=== PATIENT | male | born 1950 | race Caucasian/White ===

== ENCOUNTER 2023-09-24 00:58 | Day surgery (SDC) | payer MEDICARE, SELFPAY ==
[2023-09-18 14:40] VITALS: BMI 27.1
--- NOTE | 2023-09-18 14:48 | PC.NURSE ---
Report to the Outpatient Waiting Room, entrance under the green pavilion located off [facility], at time _1030_ on date _[phone]_. Planned Procedure Time: _1230_. Time changes happen often and if your time is changed the preop area will call you the afternoon before. - You and your visitor will be asked to self-screen and do not enter if you have any COVID symptoms. - A mask is optional within the hospital at this time. Patients may have clear liquids (water, carbonated beverages, clear teas, apple juice) until 3 hours prior to surgery with a maximum of 20 ounces. - No food from midnight until time of surgery Take the following medications with a SIP of water the morning of surgery: ___None DO NOT STOP ANY OF YOUR OTHER PRESCRIPTION MEDICATIONS PRIOR TO SURGERY ?EXCEPT THE FOLLOWING Medications to discontinue per physician All vitamins Date to take last [id number] Please no make-up, nail pitcairn islander, hairspray, perfume, deodorant, or body powder the day of surgery. No jewelry (including any body piercings) or valuables the day of surgery, leave them at home. Please take a shower or bath the night before, or the morning of, surgery with an antibacterial soap. Wear comfortable, loose fitting clothing. - Jewelry must be removed prior to entering the operating room. Rings and piercings that are not removed may be cut off. - The hospital will not accept responsibility for valuables. - Please leave all valuables, including medications, at home the day of surgery. If you are going home after surgery, a licensed corrugated fastener driver must drive you home. - NO public transportation without another adult if you receive anesthesia. - We recommend that an adult stay with you for 24 hours following discharge. - We also recommend that you do not drive, make important decision, drink alcoholic beverages, or take any drugs that were not prescribed by your health care provider for at least 24 hours after your discharge time. Follow any additional instructions given to you from your surgeon. If you or anyone in your household have experienced Covid symptoms in the past week, please notify your surgeon or the nurse liaison at the phone number below for possible testing. Telephone instructions given to ___Dana and asked if any additional questions and then verbalized understanding. Patient advised to call surgeon office or pre surgery nurse liaison [phone] if any additional questions.
--- NOTE | 2023-09-22 07:20 | P.HP_ITS ---
H&P: HPI History of Present Illness Date/Time: 09/22/23 07:20 Chief Complaint: Difficulty urinating Narrative: Patient with longstanding obstructive and irritable voiding symptoms related to bladder outlet obstruction secondary to BPH. He has failed attempts at management with both off blockers and 5 alpha reductase inhibitors. Outpatient urodynamics confirm outlet obstruction and transrectal ultrasonography of the prostate reveals a volume of 26 g. After discussion of options he is elected for TURP. Aware of the risks including, but not limited to, postoperative hematuria, retrograde ejaculation and persistent voiding symptoms Review of Systems Cardiovascular: Cardiovascular: Denies chest pain, Denies lightheadedness, Denies palpitations and Denies dyspnea Respiratory: Respiratory: Denies dyspnea Gastrointestinal: Gastrointestinal: Denies diarrhea, Denies nausea and Denies vomiting Genitourinary: Genitourinary: Denies hematuria and Denies dysuria Endocrine: Endocrine: Denies palpitations [facility] Social History Social History Smoking packs per day: 1 Smoking cigarettes per day: 20.0 Years smoked: 20 Smoking pack-years: 20.00 Smoking status: Former smoker Smoking end date: 09/17/89 Living arrangements: with family Spiritual care concerns: No Meds Home Medications and Allergies Home Medications Medication Instructions Recorded Confirmed Type metoprolol succinate 50 mg 25 mg PO QPM 09/18/23 09/18/23 History tablet,extended release 24 hr tadalafil 5 mg tablet 2 mg PO HS 09/18/23 09/18/23 History tamsulosin 0.4 mg capsule 0.4 mg PO HS 09/18/23 09/18/23 History Allergies Allergy/AdvReac Type Severity Reaction Status Date / Time No Known Allergies Allergy Verified 09/18/23 14:37 Exam Const: General: no acute distress Resp: Effort & Inspection: normal respiratory effort GI: Inspection: non-distended GI Palp: No abdominal tenderness and No Guarding due to palpation present (GI) Auscultation: normal bowel sounds Assessment and Plan Assessment and plan (1) BPH loc w urin obs/LUTS: Code(s): N40.1 - Benign prostatic hyperplasia with lower urinary tract symptoms Status: Acute Assessment and Plan: * TURP
[2023-09-24] VITALS (17 sets, daily range): BP systolic 124–157; BP diastolic 53–86; PULSE 58–94; RESP 12–18; TEMP 36–38.1; O2SAT 95–100
--- NOTE | 2023-09-24 06:28 | WPDHPUPDATE1 ---
History and Physical Update Update Date/Time: 09/24/23 06:28 History and Physical has been reviewed, including an updated exam of the patient. There are NO changes in the patient's condition. Risks, benefits, and alternatives have been discussed and questions answered. Patient agrees to proceed with procedure.
[2023-09-24] MEDS: LACTATED RINGERS 1,000 ML 30 ML IV CONT (11:11)
--- NOTE | 2023-09-24 11:58 | WPDANESEPPF ---
Anes - Initial Pre Proc Eval Procedure: Operation Date: 09/24/23 12:30 Proposed Procedures p Trans Urethral Resection of Prostate - Collin Houston MD Date/Time: 09/24/23 11:58 Surgeon: Collin Houston MD Pre Op Diagnosis: bph Patient Data Age: 72 Gender: M Height: 1.85 m Weight: 95.8 kg Last Vital Signs Temp 98.3 F 09/24/23 11:18 Pulse 69 09/24/23 11:18 Resp 16 09/24/23 11:18 BP 151/64 H 09/24/23 11:18 Pulse Ox 99 09/24/23 11:18 O2 Del Method Room Air 09/24/23 11:18 Allergies Allergy/AdvReac Type Severity Reaction Status Date / Time No Known Allergies Allergy Verified 09/24/23 10:39 Home Medications Medication Instructions Recorded Confirmed Type metoprolol succinate 50 mg 25 mg PO QPM 09/18/23 09/24/23 History tablet,extended release 24 hr tadalafil 5 mg tablet 2 mg PO HS 09/18/23 09/24/23 History tamsulosin 0.4 mg capsule 0.4 mg PO HS 09/18/23 09/24/23 History Patient hx anesthesia problems: none Family hx anesthesia problems: none Results Review: All pre-operative results and documents have been reviewed as part of the pre-operative evaluation. [facility] Social History Social History Smoking packs per day: 1 Smoking cigarettes per day: 20.0 Years smoked: 20 Smoking pack-years: 20.00 Smoking status: Former smoker Smoking end date: 09/17/89 Living arrangements: with family Spiritual care concerns: No Anes - Eval Final PreProcedure Day of Procedure 09/24/23 11:58 Patient weight: normal Heart: regular rate and rhythm Lungs: clear to auscultation Airway: Mallampati scale class II Neurological: alert and oriented Last oral intake: >/= 8 hours ASA classification: III Emergent: no Anesthetic plan: proceed Anesthesia type and monitoring: general and standard monitoring Results Review: All pre-operative results and documents have been reviewed as part of the pre-operative evaluation. Pt very active w rowing, wts, cardio, no cp or sob. Informed Consent: The patient's anesthetic plan and its attendant risks and benefits were discussed with the patient/family/POA. Questions were solicited and answers provided to the satisfaction of the patient/family/POA.
[2023-09-24] MEDS: ceFAZolin 2 GM/D5W 50 ML 2 GM/50 ML BAG IVPB (12:32)
[2023-09-24] MEDS: LIDOCAINE HCL 2% GEL UROJET 10 ML PKG MUCOUS MEM (13:20)
--- NOTE | 2023-09-24 13:36 | W.PM.PROC2 ---
Procedure Note - Detailed Date of Procedure 09/24/23 Pre-op Diagnosis BPH Post-op Diagnosis Same Procedure Performed TURP Surgeon Collin Houston MD Anesthesia General Description of Procedure The patient was brought to the operative suite where he is prepped and draped in routine sterile fashion while in the dorsal lithotomy position after the uneventful induction of a general LMA anesthetic. A 27 Montserratian resectoscope sheath was placed into his bladder. He had no urethral strictures. The patient had trilobal hyperplasia with a large median lobe. The bladder itself was endoscopically normal, showing no mucosal hyperemia, intravesical neoplasm or foreign bodies. There was a single, orthotopic ureteral orifice bilaterally. These orifices were identified and preserved throughout the remainder of the procedure. Attention was first turned to resection of the median lobe. This resection was undertaken from the bladder neck to the verumontanum and carried out until the transverse fibers of the bladder neck were identified. The left lateral lobe was then resected starting at the 6 o'clock position, working counter clockwise to the 12 o'clock position. Again, resection was carried out from the bladder neck to the verumontanum until the capsular fibers of the prostate were identified. The right lateral lobe was resected in a similar fashion starting at the 6 o'clock position working clockwise to the 12 o'clock position and carried out until the capsular fibers of the prostate were identified. Apical tissue was then circumferentially resected. All chips were evacuated from the bladder using an [employer] evacuator. Hemostasis was obtained with electric cautery. The ureteral orifices were again inspected and found to be without injury. Estimated blood loss throughout this procedure was 75cc. The patient was taken to recovery room having tolerated this well. Drains Yes Packing No Pathology Yes Complications No immediate complications Disposition PACU
[2023-09-24] MEDS: fentaNYL CITRATE INJ (*CRX) 100 MCG/2 ML VIAL 25 MCG IV PUSH ×4 (14:07→15:02)
--- NOTE | 2023-09-24 15:25 | PC.NURSE ---
This patient, Susan Wiggins, was admitted to 3 [facility] Surg Room 309-01. Patient/family oriented to hospital policies and general routines including ID bracelet, bed and alarms, visiting hours, pain management, procedures, bathroom and other care routines, personal items, smoking policy, room service/diet, and visiting hours. Information on how to activate the Rapid Response Team has been discussed. Patient/Family are encouraged to report perceived risks to care and to ask questions if they do not understand what they are told or what they should do.
--- NOTE | 2023-09-24 15:35 | PC.NURSE ---
Patient has knee high teds on.
[2023-09-24] MEDS: DOCUSATE SODIUM 100 MG CAPSULE PO (16:59)
[2023-09-24] MEDS: HYDROcodone/acetaminophen (*CRX) 5-325 MG TABLET 1 TAB PO ×2 (17:55→23:09)
[2023-09-24] MEDS: ONDANSETRON INJ 4 MG/2 ML VIAL IV PUSH (18:23)
[2023-09-24] MEDS: ceFAZolin 1 GM/NS 50 ML 1 GM/50 ML BAG IVPB (18:29)
[2023-09-24] MEDS: METOPROLOL SUCCINATE EXT REL 25 MG TABCR PO (20:40)
[2023-09-25] MEDS: ceFAZolin 1 GM/NS 50 ML 1 GM/50 ML BAG IVPB (04:10)
[2023-09-25] MEDS: HYDROcodone/acetaminophen (*CRX) 5-325 MG TABLET 1 TAB PO (04:56)
[2023-09-25 06:29] LABS: Hematocrit 37.1 % (42.0-52.0); Hemoglobin 12.2 g/dL (14.0-18.0)
[2023-09-25 06:32] VITALS: BP 114/53; PULSE 67; RESP 16; TEMP 36.9; O2SAT 96
[2023-09-25 06:51] LABS: Anion Gap 4 mmol/L (4-12); Blood Urea Nitrogen 21 mg/dL (9-20); Calcium 8.5 mg/dL (8.4-10.2); Carbon Dioxide 24 mmol/L (22-30); Chloride 104 mmol/L (98-107); Estimated CRCL calculation 74 ml/min; Estimated Glomerular Filt Rate > 60; Glucose 97 mg/dL (65-110); Potassium 4.1 mmol/L (3.4-5.0); Sodium 132 mmol/L (137-145)
--- NOTE | 2023-09-25 07:18 | P.PNUR_ITS ---
Progress Note: A&P Assessment and Plan (1) BPH loc w urin obs/LUTS: Code(s): N40.1 - Benign prostatic hyperplasia with lower urinary tract symptoms Status: Acute Assessment and Plan: * Doing well postop day 1 * Stop CBI this morning and plan voiding trial later today if urine remains Subjective Subjective Date/Time Seen: 09/25/23 07:18 Interval history: Comfortable, no complaints, slept well Review of Systems Cardiovascular: Cardiovascular: Denies chest pain, Denies lightheadedness, Denies palpitations and Denies dyspnea Respiratory: Respiratory: Denies dyspnea Gastrointestinal: Gastrointestinal: Denies diarrhea, Denies nausea and Denies vomiting Genitourinary: Genitourinary: Denies hematuria and Denies dysuria Endocrine: Endocrine: Denies palpitations Exam Const: General: no acute distress Resp: Effort & Inspection: normal respiratory effort GI: Inspection: non-distended GI Palp: No abdominal tenderness and No Guarding due to palpation present (GI) Auscultation: normal bowel sounds Urinary Catheter: Urinary Catheter: patent and draining and urine clear Objective Data Vital Signs Vital Signs: Vital Signs - 24 hr 09/24/23 11:18 09/24/23 13:30 09/24/23 13:45 Temperature 98.3 F 97.2 F L Pulse Rate 69 58 L 72 Respiratory Rate 16 12 18 Blood Pressure 151/64 H 124/63 137/70 Pulse Oximetry 99 100 100 Oxygen Delivery Room Air Simple Face Mask Simple Face Mask Oxygen Flow Rate 10 10 09/24/23 13:55 09/24/23 14:00 09/24/23 14:15 Temperature Pulse Rate 69 69 Respiratory Rate 18 14 Blood Pressure 148/82 H 148/77 H Pulse Oximetry 98 100 100 Oxygen Delivery Room Air Room Air Room Air Oxygen Flow Rate 09/24/23 14:30 09/24/23 14:45 09/24/23 15:00 Temperature Pulse Rate 65 62 60 Respiratory Rate 14 14 12 Blood Pressure 135/74 144/69 H 127/72 Pulse Oximetry 98 100 100 Oxygen Delivery Room Air Room Air Room Air Oxygen Flow Rate 09/24/23 15:11 09/24/23 15:25 09/24/23 15:40 Temperature 96.9 F L 96.8 F L Pulse Rate 67 71 76 Respiratory Rate 16 18 18 Blood Pressure 154/75 H 157/83 H 142/86 H Pulse Oximetry 100 100 100 Oxygen Delivery Room Air Oxygen Flow Rate 09/24/23 16:10 09/24/23 15:30 09/24/23 17:10 Temperature 96.8 F L Pulse Rate 71 76 Respiratory Rate 18 Blood Pressure 138/78 150/78 H Pulse Oximetry 100 99 Oxygen Delivery Room Air Oxygen Flow Rate 09/24/23 20:40 09/24/23 20:27 09/24/23 20:30 Temperature 100.5 F H Pulse Rate 91 94 Respiratory Rate 16 Blood Pressure 134/53 L Pulse Oximetry 95 Oxygen Delivery Room Air Oxygen Flow Rate 09/24/23 21:50 09/25/23 06:32 Temperature 99.8 F H 98.5 F Pulse Rate 67 Respiratory Rate 16 Blood Pressure 114/53 L Pulse Oximetry 96 Oxygen Delivery Oxygen Flow Rate Intake/Output Intake/Output: Intake & Output 09/22/23 09/23/23 09/24/23 09/25/23 23:59 23:59 23:59 23:59 Intake Total 1150 50 Output Total 600 Balance 550 50 Meds/Results Medications: Active Medications Generic Name Dose Route Start Last Admin Trade Name Freq PRN Reason Stop Dose Admin Hydrocodone Bitart/Acetaminophen 1 tab 09/24/23 15:17 09/25/23 04:56 Hydrocodone/Acetaminophen (*Crx) 5-325 Mg Tablet PO 1 tab Q4H PRN Administration Pain Rated 1-6 Cephalexin HCl 500 mg 09/25/23 09:00 Cephalexin 500 Mg Capsule PO QID [facility] Docusate Sodium 100 mg 09/24/23 17:00 09/24/23 16:59 Docusate Sodium 100 Mg Capsule PO 100 mg BID [facility] Administration Hyoscyamine 0.125 mg 09/24/23 15:17 Hyoscyamine Sulfate 0.125 Mg Tablet SUBLINGUAL Q6H PRN Bladder Spasm Metoprolol Succinate 25 mg 09/24/23 21:00 09/24/23 20:40 Metoprolol Succinate Ext Rel 25 Mg Tabcr PO 25 mg DAILY@2100 [facility] Administration Morphine Sulfate 2 mg 09/24/23 15:17 Morphine Sulfate (*Crx) 2 Mg/Ml Inj IV PUSH Q2H PRN Pain Rated 7-10 Naloxone HCl 0.1 mg 09/24/23 15:17 Naloxone Hcl 0.4 Mg/Ml Vial IV PUSH Q2M PRN Opiate Reversal Ondansetron HCl 4 mg 09/24/23 15:17 09/24/23 18:23 Ondansetron Inj 4 Mg/2 Ml Vial IV PUSH 4 mg Q12H PRN Administration Nausea And Vomiting Labs Labs: Laboratory Results - last 24 hr 09/25/23 05:41 Hgb 12.2 L Hct 37.1 L Sodium 132 L Potassium 4.1 Chloride 104 Carbon Dioxide 24 Anion Gap 4 BUN 21 H Creatinine 0.90 Estim Creat Clear Calc 74 Estimated GFR > 60 Glucose 97 Calcium 8.5
--- NOTE | 2023-09-25 08:06 | WPDANESPN ---
Anes - Prog Note Post-Op Date/Time: 09/25/23 08:06 Cardiovascular status: normal Respiratory status: normal Airway patency: baseline Mental status: baseline Post-Op hydration status: normal Vital Signs: Last Vital Signs Temp 36.9 C 09/25/23 06:32 Pulse 67 09/25/23 06:32 Resp 16 09/25/23 06:32 BP 114/53 L 09/25/23 06:32 Pulse Ox 96 09/25/23 06:32 O2 Del Method Room Air 09/24/23 20:30 O2 Flow Rate 10 09/24/23 13:45 Pain Score (VAS): 07/18 I/O: Intake & Output 09/24/23 09/25/23 09/25/23 23:59 07:59 15:59 Intake Total 750 50 Output Total 600 4275 Balance 150 -4225 Laboratory Tests 09/25/23 05:41 09/25/23 05:41 09/25/23 05:41 Hgb 12.2 L Hct 37.1 L Sodium 132 L Potassium 4.1 Chloride 104 Carbon Dioxide 24 Anion Gap 4 BUN 21 H Creatinine 0.90 Estim Creat Clear Calc 74 Estimated GFR > 60 Glucose 97 Calcium 8.5 Post-procedural complaints: none Patient Feedback: Patient satisfied with anesthetic care.
[2023-09-25 09:20] VITALS: BP 113/54; PULSE 73; O2SAT 97
[2023-09-25] MEDS: DOCUSATE SODIUM 100 MG CAPSULE PO (09:21)
[2023-09-25] MEDS: CEPHALEXIN 500 MG CAPSULE PO ×2 (09:21→12:15)
--- NOTE | 2023-09-25 12:23 | PM.DS ---
DS: Admitting Diagnosis Discharge Date 09/25/2023 Admitting Diagnosis BPH DS: Discharge Diagnosis Discharge Diagnosis (1) BPH loc w urin obs/LUTS: Code(s): N40.1 - Benign prostatic hyperplasia with lower urinary tract symptoms Status: Acute DS: Summary Hospital Course Hospital Course: This patient with longstanding prostatism refractory for medical management was admitted on the morning of his planned TURP. The procedure was undertaken on that same day in an uneventful fashion. His post-operative course was, likewise, uneventful. On the evening of the procedure he was tolerating a diet. On POD#1 his urine was clear on CBI. The urine remained clear and, therefore, the catheter was removed late morning. The patient was observed for several hours, until he demonstrated he could void effectively without significant hematuria. He was discharged with careful instruction on limiting physical activity x2 weeks and plans to f/ in 2-3 weeks. At discharge he was comfortable and tolerating a diet. Time Spent with Patient Time attestation: Total time spent providing and/or coordinating discharge services: DS: Data Data Completed and Pending Pending studies at discharge: Pending at discharge 09/24/23 13:10 Surgical [PTH] Routine Labs on day of discharge: Labs from last 24 hours 09/25/23 05:41 Hgb 12.2 L Hct 37.1 L Sodium 132 L Potassium 4.1 Chloride 104 Carbon Dioxide 24 Anion Gap 4 BUN 21 H Creatinine 0.90 Estim Creat Clear Calc 74 Estimated GFR > 60 Glucose 97 Calcium 8.5 Discharge Plan Discharge Patient Disposition: Home, Self-Care Discharge Instructions: 1) Activity: No lifting/straining >15lbs. x2 weeks. 2) Diet: Resume normal pre-admission diet. 3) Follow-up: 2-3 weeks / call office for appointment ([phone]). Stand Alone Forms: General Discharge Instructions Discharge Orders: Discharge Order (Routine); Ordered 09/25/23 Ordered By: Collin Houston Discharge Medications: New hydrocodone-acetaminophen 5-325 mg tablet 1 - 2 tablet PO Q6H PRN (Reason: pain) Qty: 20 0RF sulfamethoxazole-trimethoprim 800-160 mg tablet 1 tablet PO Q12H Qty: 6 0RF docusate sodium [Colace] 100 mg capsule 100 mg PO DAILY Qty: 30 0RF Continued metoprolol succinate 50 mg tablet extended release 24 hr 25 mg PO QPM Discontinued tamsulosin 0.4 mg capsule 0.4 mg PO HS tadalafil 5 mg tablet 2 mg PO HS
== END 2023-09-25 12:45 | disposition home or self-care (01) ==
LOC: ANHSURGERY 13:42 → ANH3MEDSUR 15:25
PROVIDERS: PCP Family Medicine; Visit Provider Urology
PROC: 0VT08ZZ Resection of Prostate, Via Natural or Artificial Opening Endoscopic (ICD-10-PCS; CPT 52601; principal; 2023-09-24 12:30)
DX: C61 Malignant neoplasm of prostate (principal); Z87.891 Personal history of nicotine dependence
CPT/HCPCS: 52601; 36415; 80048; 85014; 85018; 88305; 88342; A9270; C1758; J0690; J2405; J2704; J3010; J7120

== ENCOUNTER 2023-10-11 06:11 | Inpatient (IN) | payer MEDICARE, SELFPAY ==
[2023-10-11] VITALS (14 sets, daily range): BP systolic 108–140; BP diastolic 48–77; PULSE 61–98; RESP 12–18; TEMP 36.5–37.2; O2SAT 92–100; BMI 26.1
--- NOTE | 2023-10-11 06:15 | ADMGEN ---
This patient, Susan Wiggins, was admitted to 2 Medical Room 240-01. Patient/family oriented to hospital policies and general routines including ID bracelet, bed and alarms, visiting hours, pain management, procedures, bathroom and other care routines, personal items, smoking policy, room service/diet, and visiting hours. Information on how to activate the Rapid Response Team has been discussed. Patient/Family are encouraged to report perceived risks to care and to ask questions if they do not understand what they are told or what they should do.
[2023-10-11] MEDS: SODIUM CHLORIDE 0.9% IV 1,000 ML 100 ML IV CONT ×2 (07:05→20:06)
[2023-10-11 07:36] LABS: Basophils Percent Auto 0.3 % (0.2-1.2); Eosinophils Percent Auto 0.5 % (0-4.4); Hematocrit 32.6 % (42.0-52.0); Immature Granulocyte Absolute 0.03 K/mm3 (0.00-0.031); Immature Granulocyte Percent A 0.4 % (0-0.5); Lymphocytes Absolute Auto 0.96 K/mm3 (0.9-3.2); Lymphocytes Percent Auto 12.4 % (18.3-44.2); Mean Corpuscular HGB Conc 33.7 g/dl (32-36); Mean Corpuscular Volume 88.8 fl (80-100); Mean Platelet Volume 10.3 fl (7.4-10.4); Monocytes Absolute Auto 0.7 K/mm3 (0.1-0.6); Monocytes Percent Auto 8.5 % (2.6-8.5); Neutrophils Absolute Auto 6.1 K/mm3 (1.3-6.7); Neutrophils Percent Auto 77.9 % (45.5-73.1); Platelet Count Result 170 k/mm3 (150-375); Red Blood Count 3.67 M/mm3 (4.6-6.20); Red Cell Distribution Width 12.9 % (11.5-14.5); White Blood Count 7.8 K/mm3 (4.5-10.0)
--- NOTE | 2023-10-11 07:38 | PM.IMHP ---
H&P: HPI History of Present Illness Date/Time: 10/11/23 07:38 Chief Complaint: hematuria Narrative: This is a 73-year-old male with a significant past medical history of BPH, HTN, former smoker, S/P TURP procedure on 09/24/[address] Houston who was directly admitted to the hospital for hematuria. He was discharged on the 09/25/2023 after having TURP procedure and his Bowles was removed at that time. He was observed for several hours on postop day 1 make sure that he could void effectively without significant hematuria. Ever since his procedure on the he has had worsening hematuria and urinary retention so he presented to [facility] where a catheter was inserted for CBI. He was transferred here for further evaluation with Urologist. On assessment the nurse is at the bedside manually irrigating catheter as he continues to have obstruction with clots. He denies any fever, chills, nausea, vomiting, diarrhea, abdominal pain, chest pain, shortness a breath, headache, lightheadedness, dizziness. He will remain NPO for possible surgical intervention today with Urology. We will check serial H&H until he goes for procedure. Review of Systems Review of Systems: All systems reviewed & are unremarkable except as noted in HPI and below Constitutional: Constitutional: Reports as per HPI and Reports no additional constitutional complaints Eyes: Eyes: Reports as per HPI and Reports no additional eye complaints ENT: Reports system reviewed and no additional complaints, except as documented and Reports as per HPI Cardiovascular: Cardiovascular: Reports as per HPI and Reports no additional cardiovascular complaints Respiratory: Respiratory: Reports as per HPI and Reports no additional respiratory complaints Gastrointestinal: Gastrointestinal: Reports as per HPI and Reports no additional gastrointestinal complaints Genitourinary: Genitourinary: Reports no additional male genitourinary complaints and Reports as per HPI Musculoskeletal: Musculoskeletal: Reports no additional musculoskeletal complaints and Reports as per HPI Integumentary/Breasts: Skin/Breast: Reports system reviewed and no additional complaints, except as docu and Reports as per HPI Neurologic: Reports system reviewed and no additional complaints, except as documented and Reports as per HPI Psychiatric: Psychiatric: Reports no additional psychiatric complaints and Reports as per HPI [facility] Past Medical History Medical History (Updated 10/11/23 @ 10:12 by Nikki Jesus APRN) BPH loc w urin obs/LUTS Hypertension Surgical History Surgical History (Updated 10/11/23 @ 10:12 by Nikki Jesus APRN) S/P TURP (status post transurethral resection of prostate) Family History Family History Sibling Polycystic kidney disease Father Polycystic kidney disease Grandparent Polycystic kidney disease Mother Lung cancer Sibling BPH (benign prostatic hyperplasia) Social History Social History Smoking packs per day: 1.5 Smoking cigarettes per day: 30.0 Years smoked: 20 Smoking pack-years: 30.00 Smoking status: Former smoker Smoking end date: 06/08/89 Alcohol intake: never Substance use: never Do You Feel Safe in your Home?: Yes Lack of Transportation: No Lack of Food: Never True Current Housing: I Have Housing Concerned About Future Housing: No Difficulty Paying Gas/Electric Bills: No Difficulty Paying for Meds: No Currently Unemployed: No Education: High School Diploma/GED Difficulty w/ Childcare or Family Care: No Living arrangements: with family Spiritual care concerns: No Meds Home Medications and Allergies Home Medications Medication Instructions Recorded Confirmed Type metoprolol succinate 50 mg 25 mg PO QPM 09/18/23 10/11/23 History tablet,extended release 24 hr Allergies
[2023-10-11 07:50] LABS: Prothrombin Time 13.9 Seconds (11.1-14.7)
[2023-10-11 07:51] LABS: Partial Thromboplastin Time 24.5 Seconds (22.3-36.8)
[2023-10-11 07:55] LABS: Anion Gap 4 mmol/L (4-12); Blood Urea Nitrogen 22 mg/dL (9-20); Calcium 8.9 mg/dL (8.4-10.2); Carbon Dioxide 23 mmol/L (22-30); Chloride 105 mmol/L (98-107); Estimated CRCL calculation 81 ml/min; Estimated Glomerular Filt Rate > 60; Glucose 118 mg/dL (65-110); Potassium 4.2 mmol/L (3.4-5.0); Sodium 132 mmol/L (137-145)
[2023-10-11 11:00] LABS: Hematocrit 32.6 % (42.0-52.0); Hemoglobin 10.9 g/dL (14.0-18.0); Mean Corpuscular HGB Conc 33.4 g/dl (32-36); Mean Corpuscular Hemoglobin 30.1 pg (26-34); Mean Corpuscular Volume 90.1 fl (80-100); Mean Platelet Volume 10.3 fl (7.4-10.4); Platelet Count Result 165 k/mm3 (150-375); Red Blood Count 3.62 M/mm3 (4.6-6.20); Red Cell Distribution Width 12.9 % (11.5-14.5); White Blood Count 7.3 K/mm3 (4.5-10.0)
--- NOTE | 2023-10-11 11:38 | WPDANESEPPF ---
Anes - Initial Pre Proc Eval Procedure: Operation Date: 10/11/23 13:00 Proposed Procedures p Cystoscopy, Evacuation Bladder Clots - Paul Gr MD Date/Time: 10/11/23 11:38 Surgeon: Simón Pre Op Diagnosis: Hematuria Patient Data Age: 73 Gender: M Height: 1.85 m Weight: 89.7 kg Last Vital Signs Temp 36.7 C 10/11/23 08:00 Pulse 92 10/11/23 08:00 Resp 17 10/11/23 08:00 BP 138/70 10/11/23 08:00 Pulse Ox 94 10/11/23 08:00 O2 Del Method Room Air 10/11/23 07:55 Allergies Allergy/AdvReac Type Severity Reaction Status Date / Time No Known Allergies Allergy Verified 10/11/23 06:31 Home Medications Medication Instructions Recorded Confirmed Type metoprolol succinate 50 mg 25 mg PO QPM 09/18/23 10/11/23 History tablet,extended release 24 hr Laboratory Tests 10/11/23 10/11/23 07:31 10:51 WBC 7.8 K/mm3 7.3 K/mm3 (4.5-10.0) (4.5-10.0) RBC 3.67 L M/mm3 3.62 L M/mm3 (4.6-6.20) (4.6-6.20) Hgb 11.0 L g/dL 10.9 L g/dL (14.0-18.0) (14.0-18.0) Hct 32.6 L % 32.6 L % (42.0-52.0) (42.0-52.0) MCV 88.8 fl 90.1 fl (80-100) (80-100) MCH 30.0 pg 30.1 pg (26-34) (26-34) MCHC 33.7 g/dl 33.4 g/dl (32-36) (32-36) RDW 12.9 % 12.9 % (11.5-14.5) (11.5-14.5) Plt Count 170 k/mm3 165 k/mm3 (150-375) (150-375) MPV 10.3 fl 10.3 fl (7.4-10.4) (7.4-10.4) Immature Gran % (Auto) 0.4 % (0-0.5) Neut % (Auto) 77.9 H % (45.5-73.1) Lymph % (Auto) 12.4 L % (18.3-44.2) [place] % (Auto) 8.5 % (2.6-8.5) Eos % (Auto) 0.5 % (0-4.4) Baso % (Auto) 0.3 % (0.2-1.2) Lymph # (Auto) 0.96 K/mm3 (0.9-3.2) [place] # (Auto) 0.7 H K/mm3 (0.1-0.6) Eos # (Auto) 0.0 K/mm3 (0-0.3) Baso # (Auto) 0.0 K/mm3 (0.0-0.1) Abs Immat Gran (auto) 0.03 K/mm3 (0.00-0.031) Absolute Neuts (auto) 6.1 K/mm3 (1.3-6.7) Absolute Nucleated RBC 0.000 K/mm3 (0.0-0.012) Nucleated RBC % 0.0 % (0.0-0.2) PT 13.9 Seconds (11.1-14.7) INR 1.0 APTT 24.5 Seconds (22.3-36.8) Sodium 132 L mmol/L (137-145) Potassium 4.2 mmol/L (3.4-5.0) Chloride 105 mmol/L (98-107) Carbon Dioxide 23 mmol/L (22-30) Anion Gap 4 mmol/L (4-12) BUN 22 H mg/dL (9-20) Creatinine 0.80 mg/dL (0.7-1.3) Estim Creat Clear Calc 81 ml/min Estimated GFR > 60 (59 - ) Glucose 118 H mg/dL (65-110) Calcium 8.9 mg/dL (8.4-10.2) Patient hx anesthesia problems: none Family hx anesthesia problems: none Results Review: All pre-operative results and documents have been reviewed as part of the pre-operative evaluation. [facility] Past Medical History Medical History (Updated 10/11/23 @ 11:40 by Everette Melgoza DO) BPH loc w urin obs/LUTS CAD (coronary artery disease) Hypertension Surgical History Surgical History (Updated 10/11/23 @ 11:40 by Everette Melgoza DO) History of coronary artery stent placement x1 2013 S/P TURP (status post transurethral resection of prostate) Family History Family History Sibling Polycystic kidney disease Father Polycystic kidney disease Grandparent Polycystic kidney disease Mother Lung cancer Sibling BPH (benign prostatic hyperplasia) Social History Social History Smoking packs per day: 1.5 Smoking cigarettes per day: 30.0 Years smoked: 20 Smoking pack-years: 30.00 Smoking status: Former smoker Smoking end date: 06/08/89 Alcohol intake: never Substance use: never Do You Feel Safe in your Home?: Yes Lack of Transportation: No Lack of Food: Never True Current Housing: I Have Housing Concerned About Future Housing: No Difficulty Paying Gas/Electric Bills: No
--- NOTE | 2023-10-11 12:57 | WPDURCON ---
Assessment and Plan Assessment and plan (1) Hematuria: Code(s): R31.9 - Hematuria, unspecified Status: Acute Assessment and Plan: Given repeated difficulties with the Bowles catheter. Will proceed with cystoscopy, clot evacuation and fulguration in the operating room. Urology Consult Note HPI Date Seen: 10/11/23 Time Seen: 12:57 Requesting Physician: Hanny Bradley DO Primary Care Provider: Osmin Wong, Consult Narrative Reason for consult: Gross hematuria with clot retention Narrative: Susan Wiggins is a 73 year old male status post transurethral section of prostate by Dr. Houston we couple of weeks ago. He has been doing well up until yesterday at which point he started having some gross hematuria. He presented to an outside facility where they had difficulty with the catheter and irrigating it. He was transferred here and had further issues requiring further irrigation overnight. Will proceed with cysto clot evacuation and fulguration this morning Review of Systems Review of Systems: All systems reviewed & are unremarkable except as noted in HPI and below PMFSH Past Medical History Medical History BPH loc w urin obs/LUTS CAD (coronary artery disease) Hypertension Surgical History Surgical History History of coronary artery stent placement x1 2013 S/P TURP (status post transurethral resection of prostate) Family History Family History Sibling Polycystic kidney disease Father Polycystic kidney disease Grandparent Polycystic kidney disease Mother Lung cancer Sibling BPH (benign prostatic hyperplasia) Social History Social History Smoking packs per day: 1.5 Smoking cigarettes per day: 30.0 Years smoked: 20 Smoking pack-years: 30.00 Smoking status: Former smoker Smoking end date: 06/08/89 Alcohol intake: never Substance use: never Do You Feel Safe in your Home?: Yes Lack of Transportation: No Lack of Food: Never True Current Housing: I Have Housing Concerned About Future Housing: No Difficulty Paying Gas/Electric Bills: No Difficulty Paying for Meds: No Currently Unemployed: No Education: High School Diploma/GED Difficulty w/ Childcare or Family Care: No Living arrangements: with family Spiritual care concerns: No Meds Home Medications and Allergies Home Medications Medication Instructions Recorded Confirmed Type metoprolol succinate 50 mg 25 mg PO QPM 09/18/23 10/11/23 History tablet,extended release 24 hr Allergies Allergy/AdvReac Type Severity Reaction Status Date / Time No Known Allergies Allergy Verified 10/11/23 06:31 Vital Signs Vital Signs - 24 hr 10/11/23 06:59 10/11/23 08:00 10/11/23 07:55 Temperature 36.8 C 36.7 C Pulse Rate 91 92 Respiratory Rate 17 17 Blood Pressure 140/72 138/70 Pulse Oximetry 94 94 Oxygen Delivery Room Air Exam Const: General: cooperative, healthy appearing and comfortable Resp: Effort & Inspection: normal respiratory effort Cardio: Rate: regular rate Rhythm: regular rhythm Urinary Catheter: Urinary Catheter: urine red and urine with clots Results Labs 10/11/23 10:51 10/11/23 07:31 Labs: Short CBC 10/11/23 10/11/23 Range/Units 07:31 10:51 WBC 7.8 7.3 (4.5-10.0) K/mm3 Hgb 11.0 L 10.9 L (14.0-18.0) g/dL Hct 32.6 L 32.6 L (42.0-52.0) % Plt Count 170 165 (150-375) k/mm3 BMP 10/11/23 07:31 Sodium 132 L Potassium 4.2 Chloride 105 Carbon Dioxide 23 BUN 22 H Creatinine 0.80 Glucose 118 H Calcium 8.9
--- NOTE | 2023-10-11 12:59 | WPDHPUPDATE1 ---
History and Physical Update Update Date/Time: 10/11/23 12:59 History and Physical has been reviewed, including an updated exam of the patient. There are NO changes in the patient's condition. Risks, benefits, and alternatives have been discussed and questions answered. Patient agrees to proceed with procedure. Proceed with cystoscopy, clot evacuation, fulguration.
[2023-10-11] MEDS: ceFAZolin 2 GM/D5W 50 ML 2 GM/50 ML BAG IVPB (13:37)
[2023-10-11] MEDS: LIDOCAINE HCL 2% GEL UROJET 10 ML PKG MUCOUS MEM (13:48)
--- NOTE | 2023-10-11 14:13 | P.OP_ITS ---
Procedure Note - Detailed Date of Procedure 10/11/23 Pre-op Diagnosis Hematuria clots Post-op Diagnosis Same Procedure Performed Cystoscopy, clot evacuation with fulguration and Bowles catheter placement Surgeon Paul Gr MD Anesthesia General Description of Procedure Patient was taken to the operative suite correctly identified. Once anesthesia was obtained was placed in dorsal lithotomy position and prepped and draped usual sterile fashion. Twenty-two [place] scope was inserted the bladder. He had a significant amount of clots which were irrigated out. Approximately 4-500 cc were obtained. Reinspection revealed no residual clot. He had a little bit of extra tissue at the 1 o'clock position which I resected off. I then fulgurated the prior resection site. There appeared to be good hemostasis at termination of this. 2% viscous lidocaine was inserted into the urethra and a [address] [place] was placed with 15 cc in the balloon. He was taken recovery stable condition. This completes dictation. Please send a copy of op note to my office. Drains Yes Packing No Pathology None sent Complications No immediate complications Condition Stable Disposition PACU
[2023-10-11] MEDS: LACTATED RINGERS 1,000 ML 30 ML IV CONT (14:16)
[2023-10-11] MEDS: MORPHINE SULFATE INJ (*CRX) 10 MG/ML AMP 2 MG IV PUSH ×2 (15:04→15:09)
[2023-10-11] MEDS: METOPROLOL SUCCINATE EXT REL 25 MG TABCR PO (18:13)
[2023-10-11] MEDS: ACETAMINOPHEN 325 MG TABLET 650 MG PO (20:10)
[2023-10-12 03:45] VITALS: BP 127/57; PULSE 64; RESP 17; TEMP 36.8; O2SAT 97
[2023-10-12] MEDS: SODIUM CHLORIDE 0.9% IV 1,000 ML 100 ML IV CONT (04:58)
[2023-10-12 05:02] LABS: Basophils Percent Auto 0.4 % (0.2-1.2); Eosinophils Absolute Auto 0.4 K/mm3 (0-0.3); Eosinophils Percent Auto 7.5 % (0-4.4); Hematocrit 30.7 % (42.0-52.0); Hemoglobin 9.8 g/dL (14.0-18.0); Immature Granulocyte Absolute 0.01 K/mm3 (0.00-0.031); Immature Granulocyte Percent A 0.2 % (0-0.5); Lymphocytes Percent Auto 27.6 % (18.3-44.2); Mean Corpuscular HGB Conc 31.9 g/dl (32-36); Mean Corpuscular Hemoglobin 29.7 pg (26-34); Monocytes Absolute Auto 0.6 K/mm3 (0.1-0.6); Monocytes Percent Auto 10.8 % (2.6-8.5); Neutrophils Absolute Auto 2.7 K/mm3 (1.3-6.7); Neutrophils Percent Auto 53.5 % (45.5-73.1); Platelet Count Result 168 k/mm3 (150-375); White Blood Count 5.1 K/mm3 (4.5-10.0)
[2023-10-12 05:25] LABS: Alanine Aminotransferase 14 U/L (6-50); Albumin Level 3.4 g/dL (3.5-5.1); Alkaline Phosphatase 54 U/L (38-126); Anion Gap 3 mmol/L (4-12); Aspartate Amino Transferase 28 U/L (17-59); Bilirubin,Total 0.5 mg/dL (0.2-1.3); Blood Urea Nitrogen 14 mg/dL (9-20); Calcium 8.3 mg/dL (8.4-10.2); Carbon Dioxide 25 mmol/L (22-30); Chloride 106 mmol/L (98-107); Estimated CRCL calculation 73 ml/min; Estimated Glomerular Filt Rate > 60; Glucose 88 mg/dL (65-110); Potassium 4.1 mmol/L (3.4-5.0); Sodium 134 mmol/L (137-145)
--- NOTE | 2023-10-12 06:04 | WPDUROPN2 ---
Progress Note: A&P Assessment and Plan (1) S/P TURP (status post transurethral resection of prostate): Code(s): Z90.79 - Acquired absence of other genital organ(s) Status: Acute (2) Hematuria: Code(s): R31.9 - Hematuria, unspecified Status: Acute Assessment and Plan: Urine clear on slow CBI Stop CBI / voiding trial later today if urine remains clear Subjective Subjective Date/Time Seen: 10/12/23 06:04 Interval history: Comfortable, urine clear Review of Systems Review of Systems: All systems reviewed & are unremarkable except as noted in HPI and below Exam Const: General: no acute distress Resp: Effort & Inspection: normal respiratory effort GI: Inspection: non-distended GI Palp: No abdominal tenderness and No Guarding due to palpation present (GI) Auscultation: normal bowel sounds Urinary Catheter: Urinary Catheter: patent and draining and urine clear (on slow CBI) Objective Data Vital Signs Vital Signs: Vital Signs - 24 hr 10/11/23 06:59 10/11/23 08:00 10/11/23 07:55 Temperature 98.2 F 98.0 F Pulse Rate 91 92 Respiratory Rate 17 17 Blood Pressure 140/72 138/70 Pulse Oximetry 94 94 Oxygen Delivery Room Air Oxygen Flow Rate 10/11/23 14:16 10/11/23 14:30 10/11/23 14:45 Temperature 97.7 F Pulse Rate 74 73 86 Respiratory Rate 13 12 17 Blood Pressure 108/68 117/71 131/77 Pulse Oximetry 100 100 100 Oxygen Delivery Simple Face Mask Simple Face Mask Room Air Oxygen Flow Rate 10 10 10/11/23 15:00 10/11/23 15:40 10/11/23 15:55 Temperature 98.7 F 99.0 F Pulse Rate 86 79 78 Respiratory Rate 17 17 17 Blood Pressure 124/77 135/65 128/63 Pulse Oximetry 100 92 100 Oxygen Delivery Room Air Oxygen Flow Rate 10/11/23 16:32 10/11/23 18:13 10/11/23 17:25 Temperature 98.2 F 99 F Pulse Rate 85 85 98 Respiratory Rate 16 18 Blood Pressure 127/66 117/48 L Pulse Oximetry 100 100 Oxygen Delivery Oxygen Flow Rate 10/11/23 19:33 10/11/23 19:38 10/11/23 23:47 Temperature 98.6 F 97.8 F Pulse Rate 72 72 61 Respiratory Rate 18 18 18 Blood Pressure 121/53 L 109/51 L Pulse Oximetry 100 100 97 Oxygen Delivery Room Air Oxygen Flow Rate 10/12/23 03:45 Temperature 98.3 F Pulse Rate 64 Respiratory Rate 17 Blood Pressure 127/57 L Pulse Oximetry 97 Oxygen Delivery Oxygen Flow Rate Intake/Output Intake/Output: Intake & Output 10/09/23 10/10/23 10/11/23 10/12/23 23:59 23:59 23:59 23:59 Intake Total 2560 1036.7 Output Total 69459 Balance -7640 1036.7 Meds/Results Medications: Active Medications Generic Name Dose Route Start Last Admin Trade Name Freq PRN Reason Stop Dose Admin Acetaminophen 650 mg 10/11/23 04:18 10/11/23 20:10 Acetaminophen 325 Mg Tablet PO 650 mg Q4H PRN Administration Mild Pain (1-3) or Fever Sodium Chloride 1,000 mls @ 100 mls/hr 10/11/23 04:20 10/12/23 04:58 Normal Saline Iv IV CONT 100 mls/hr .Q10H AURELIA Administration Lactated Ringer's 1,000 mls @ 30 mls/hr 10/11/23 11:45 10/11/23 15:11 Lr - Lactated Ringers Iv IV CONT Infused .Q24H AURELIA Infusion Lactated Ringer's 1,000 mls @ 30 mls/hr 10/11/23 11:45 10/11/23 15:57 Lr - Lactated Ringers Iv IV CONT Not Given .Q24H AURELIA Metoprolol Succinate 25 mg 10/11/23 18:00 10/11/23 18:13 Metoprolol Succinate Ext Rel 25 Mg Tabcr PO 25 mg QPM AURELIA Administration Morphine Sulfate 2 mg 10/11/23 13:32 10/11/23 15:09 Morphine Sulfate Inj (*Crx) 10 Mg/Ml Amp IV PUSH 2 mg Q5M PRN Administration Pain Ondansetron HCl 4 mg 10/11/23 09:42 Ondansetron Inj 4 Mg/2 Ml Vial IV PUSH Q6H PRN Nausea And Vomiting Ondansetron HCl 4 mg 10/11/23 11:41 Ondansetron Inj 4 Mg/2 Ml Vial IV PUSH ONCE PRN Nausea Labs Labs: Laboratory Results - last 24 hr 10/11/23 10/11/23 10/12/23 07:31 10:51 04:03 WBC 7.8 7.3 RBC 3.67 L 3.62 L Hgb 11.0
[2023-10-12 08:00] VITALS: BP 122/53; PULSE 70; RESP 18; TEMP 37.1; O2SAT 97
[2023-10-12] MEDS: ACETAMINOPHEN 325 MG TABLET 650 MG PO (08:08)
[2023-10-12 08:37] VITALS: PULSE 71; O2SAT 93
[2023-10-12 11:47] LABS: Appearance Urine Clear (Clear); Bacteria Urine None Seen /hpf; Bilirubin Urine Negative (Negative); Blood Urine 3+ (Negative); Color Urine Yellow (Yellow); Glucose Urine UA Negative (Negative); Ketones Urine Negative (Negative); Leukocyte Esterase Ur 3+ LEU/UL (Negative); Nitrate Urine Negative (Negative); Non Pathogenic Casts 0-2; Protein Urine 1+ mg/dL (Negative); RBC Urine >100 /hpf (0-2); Specific Grav Ur 1.008 (1.001-1.035); Squamous Epithelial Cell Urine None Seen /hpf (Few); Urobilinogen Urine 0.2 mg/dL (<2.0); WBC Urine >100 /hpf (0-3)
[2023-10-12 11:49] LABS: Add Urine Microscopic? YES
--- NOTE | 2023-10-12 11:58 | PM.DS ---
DS: Admitting Diagnosis Discharge Date 10/12/23 Admitting Diagnosis Hematuria Status post TURP Hypertension DS: Discharge Diagnosis Discharge Diagnosis (1) Hematuria: Code(s): R31.9 - Hematuria, unspecified Status: Acute (2) S/P TURP (status post transurethral resection of prostate): Code(s): Z90.79 - Acquired absence of other genital organ(s) Status: Acute (3) Hypertension: Code(s): I10 - Essential (primary) hypertension Status: Acute DS: Summary Hospital Course Reason for hospitalization: Hematuria Status post TURP Hypertension Hospital Course: 10/11/23: This is a 73-year-old male with a significant past medical history of BPH, HTN, former smoker,? S/P TURP procedure on 09/24/[address] Houston who was directly admitted to the hospital for hematuria.? He was discharged on the 09/25/2023 after having TURP procedure and his Bowles was removed at that time.? He was observed for several hours on postop day 1 make sure that he could void effectively without significant hematuria. Ever since his procedure on the he has had worsening hematuria and urinary retention so he presented to [facility] where a catheter was inserted for CBI. He was transferred here for further evaluation with Urologist.? On assessment the nurse is at the bedside manually irrigating catheter as he continues to have obstruction with clots.? He denies any fever, chills, nausea, vomiting, diarrhea, abdominal pain, chest pain, shortness a breath, headache, lightheadedness, dizziness. He will remain NPO for possible surgical intervention today with Urology.? We will check serial H&H until he goes for procedure. 10/12/23: No new complaints today. Patient is postop day 1 from a cystoscopy with clot evacuation and fulguration with Urology services. He had his Bowles catheter removed and a voiding trial today. Stable the void clear yellow urine without any issues. Labs today showed hemoglobin of 9.8, sodium 134, otherwise unremarkable. A UA was obtained which shown 1+ urine protein, 3+ urine blood, 3+ leukocytes, greater than 100 urine RBC, greater than 100 urine WBC, nitrates were negative and bacteria was negative. Urine culture was obtained and is pending. Patient denies any urinary complaints at this time. He is stable for discharge at this time. We will follow the urine culture and if anything grows we will start antibiotics at that point. He will follow up with Urology on an outpatient basis. Final diagnosis: Hematuria, S/P cystoscopy with clot evacuation and fulguration Status at Discharge Cognitive/behavioral status at discharge: Alert oriented x3 Functional status at discharge: independent ambulation Overall status at discharge: patient is progressing back to baseline Time Spent with Patient Time attestation: Total time spent providing and/or coordinating discharge services: Time spent: Greater than 30 minutes Exam Narrative: General: In no acute distress, well nourished Head: atraumatic, no encephalopathy Eyes: EOMI, PERRLA, sclera clear ENT: moist mucous membranes, nasal passages clear Neck: supple, no JVD, no adenopathy, trachea midline Cardiac: Normal S1 and S2. RRR, No murmur, gallops or friction rubs, peripheral pulses intact. Respiratory: Lungs clear to auscultation, no adventitious lung sounds Gastrointestinal: soft, non-distended, non-tender, normoactive bowel sounds. :voiding clear yellow urine without difficulty Extremities: moves all extremities well, no edema, good ROM, strength 5/5 Skin: clean, dry, intact. No wounds or lesions. Neuro: Alert and oriented x4, cranial nerves intact, no neuro deficits. Psych: normal mood, normal affect, interactive DS: Data Data Completed and Pending Completed studies during hospitalization: none Pending studies at discharge: urine culture pending Labs on day of discharge: Labs from last 24 hours 10/12/23 10/12/23 10/12/23 11:30 04:04 04:03
--- NOTE | 2023-10-14 10:01 | PC.NURSE ---
Urine cx is negative. Luli Jesus APRN aware.
== END 2023-10-12 14:15 | disposition home or self-care (01) | DRG 696 ==
PROVIDERS: Urology; Admitting Provider Internal Medicine; PCP Family Medicine; Visit Provider Nurse Practitioner Acute Care
PROC: 0TCB8ZZ Extirpation of Matter from Bladder, Via Natural or Artificial Opening Endoscopic (ICD-10-PCS; CPT 52001; principal; 2023-10-11 13:00)
DX: R31.0 Gross hematuria (principal); R33.8 Other retention of urine; I10 Essential (primary) hypertension; I25.10 Atherosclerotic heart disease of native coronary artery without angina pectoris; Z87.891 Personal history of nicotine dependence; Z95.5 Presence of coronary angioplasty implant and graft; Z90.79 Acquired absence of other genital organ(s)
CPT/HCPCS: 36415; 80048; 80053; 81001; 83735; 85025; 85027; 85610; 85730; 87086; A9270; G0378; G0379; J0690; J2270; J2405; J2704; J7030; J7120